=== PATIENT | female | born 1995 | race Hispanic/Latino ===

== ENCOUNTER 2016-06-27 14:28 | Inpatient (IN) | payer BC ==
[2016-06-27] MEDS ORDERED: Lactated Ringer's 1,000 ML IV STA (15:23)
--- NOTE | 2016-06-27 15:41 | ED PDOC ---
Syncope/Near Syncope/Dizzyness Time Seen by Provider: 06/27/16 15:13 Chief Complaint (Nursing): Dizziness/Lightheaded Chief Complaint (Provider): Lightheaded History Per: Patient History/Exam Limitations: no limitations Onset/Duration Of Symptoms: Days (x1 week), Worse Since (onset) Current Symptoms Are (Timing): Still Present Fall Associated With With Symptoms: No Severity: Moderate Additional Complaint(s): Trena Lopez is a 21 year old female, with no pertinent past medical history, who presents to the ED on 06/27/16 for the evaluation of moderate lightheadedness that she has experienced x1 week, reportedly worse since onset. Associated shortness of breath, present at rest and worsened with exertion, also reported in addition to mild, intermittent nausea and a posterior headache that begins to "bang/pound" with exertion. Denies fever, chills, vision changes , rhinorrhea, chest pain, cough, sore throat, vomiting, diarrhea, dysuria, weakness/numbness or syncopal episodes. Though she does report taking oral contraceptives she further denies any recent travel or dietary changes. No prior history of similar complaints or presence of URI symptoms prior symptom onset. LMP is as of 06/22/16, reportedly ending 2 days ago. Of note, patient was evaluated for this issue by a doctor in [facility] twice within the past week, most recently as of today. EKG and bloodwork were both performed , and though patient reports having been told the EKG was normal she has not yet been advised of the lab results. She had been initially given a prescription for Meclizine, but after it had provided no relief she had been referred to the ED for further evaluation. Has also medicated with Excedrin without relief. PMD: none Past Medical History Reviewed: Historical Data, Nursing Documentation, Vital Signs Vital Signs: Last Vital Signs Temp 98.1 F 06/27/16 14:47 Pulse 100 H 06/27/16 14:47 Resp 18 06/27/16 14:47 BP 94/47 L 06/27/16 14:47 Pulse Ox 100 06/27/16 14:47 - Medical History PMH: No Chronic Diseases Denies: Asthma, Diabetes, Migraine - Surgical History Surgical History: No Surg Hx - Family History Family History: States: Other (mother reportedly gets headaches, no hx of migraines) - Social History Current smoker - smoking cessation education provided: No Alcohol: Occasional (2x/week) Drugs: Denies - Home Medications Home Medications: Ambulatory Orders Medication Instructions Recorded No Known Home Med 06/27/16 - Allergies Allergies/Adverse Reactions: Allergies Allergy/AdvReac Type Severity Reaction Status Date / Time amoxicillin Allergy RASH Verified 06/27/16 14:46 Review of Systems ROS Statement: Except As Marked, All Systems Reviewed And Found Negative Constitutional: Negative for: Fever, Chills Eyes: Negative for: Vision Change ENT: Negative for: Nose Discharge, Throat Pain Cardiovascular: Positive for: Light Headedness. Negative for: Chest Pain, Other (no syncope) Respiratory: Positive for: Shortness of Breath, SOB with Exertion. Negative for : Cough Gastrointestinal: Positive for: Nausea. Negative for: Vomiting, Diarrhea Genitourinary Female: Negative for: Dysuria Neurological: Positive for: Headache (posterior, present at rest but begins "banging/pounding" with exertion). Negative for: Weakness, Numbness Physical Exam - Reviewed Nursing Documentation Reviewed: Yes Vital Signs Reviewed: Yes - Physical Exam Appears: Positive for: Non-toxic, No Acute Distress Head Exam: Positive for: ATRAUMATIC, NORMOCEPHALIC Skin: Positive for: Warm, Dry, Pallor Eye Exam: Positive for: Normal appearance, EOMI, PERRL. Negative for: Nystagmus ENT: Positive for: Normal ENT Inspection Neck: Positive for: Normal, Painless ROM, Supple Cardiovascular/Chest: Positive for: Tachycardia (mild, regular rhythm). Negative for: Murmur Respiratory: Positive for: Normal Breath Sounds. Negative for: Rales, Rhonchi, Wheezing, Respiratory Distress Gastrointestinal/Abdominal: Positive for: Normal Exam, Soft. Negative for: Tenderness Back: Positive for: Normal Inspection Extremity: Positive for: Normal ROM. Negative for: Calf Tenderness, Swelling Neurologic/Psych: Positive for: Alert, oral hygienist II-XII (intact), Oriented, Cerebellar Tests (intact [id number] b/l), Other ((+) mild [place] Hall[place] b/l) . Negative for: Motor/Sensory Deficits (5/5 x4 extremities) - Laboratory Results Result Diagrams: 06/27/16 15:52 06/27/16 15:52 Urine POC: Negative - ECG O2 Sat by Pulse Oximetry: 100 (RA) Pulse Ox Interpretation: Normal - CT Scan/US CT Head w/o contrast Other Rad Studies (CT/US): Read By Radiologist, Radiology Report Reviewed Other Rad Interpretation: see MDM - Critical Care Total Time (In Min): 30 Medical Decision Making Medical Decision Makin:13 Initial Impression: headache, lightheadedness Differential diagnoses include but are not limited to anemia, hyper/ hypothyroidism, pulmonary embolism. Initial Plan: * EKG * CT Head w/o contrast * Labs * Magnesium * Phosphorus * TSH * D-Dimer * Glucose/Blood/POC * Upreg * Udip * Lactated Ringer's 1000ml at 1000mls/hr * Reevaluation 16:46 CT Head report reviewed: FINDINGS: HEMORRHAGE: No intracranial hemorrhage. BRAIN: No mass effect or edema. No atrophy or chronic microvascular ischemic changes. VENTRICLES: Unremarkable. No hydrocephalus. CALVARIUM: Unremarkable. PARANASAL SINUSES: Unremarkable as visualized. No significant inflammatory changes. MASTOID AIR CELLS: Unremarkable as visualized. No inflammatory changes. OTHER FINDINGS: None. IMPRESSION: Normal CT of the Head. 17:00 Labs reviewed, patient is anemic with a hemoglobin level of 6.6. Upon provider reevaluation patient admits to having produced dark stools over the past 2 days. Upon rectal examination, stool is notably black with signs of bleeding. Will call Dr. Fong (GI document preparation specialist) for consult. Crossmatch, Blood Type/Screen, PTT and PT have been ordered as well as administration of protonix 40mg IVP. 17:[address] Fong, patient will be admitted under the service of Dr. Lay (Medicine document preparation specialist) with him to serve as consult. 17:[address] Lay, who is now aware of patient. Placed orders for Ferritin, Iron & TIBC, reticulocyte count, haptoglobin and occult blood stool. 17:[address] Carey (Cryptologic Technician Operator/Analyst), patient is stable for admission to Telemetry. Plan has been discussed with patient, who is in agreement. Scribe Attestation: Documented by Mildred King, acting as a scribe for Zofia Ramirez MD. Provider Scribe Attestation: All medical record entries made by the Scribe were at my direction and personally dictated by me. I have reviewed the chart and agree that the record accurately reflects my personal performance of the history, physical exam, medical decision making, and the department course for this patient. I have also personally directed, reviewed, and agree with the discharge instructions and disposition. Disposition - Clinical Impression Clinical Impression: Anemia, Gastrointestinal hemorrhage - Patient ED Disposition Is Patient to be Admitted: Yes - Disposition Disposition Time: 17:47 Condition: GUARDED - Pt Status Changed To: Hospital Disposition Of: Inpatient - Admit Certification Admit to Inpatient:: After my assessment, the patient will require hospitalization for at least two midnights. This is because of the severity of symptoms shown, intensity of services needed, and/or the medical risk in this patient being treated as an outpatient. - POA Present On Arrival: None
[2016-06-27 15:57] LABS: BASO % 0.8 % (0.0-2.0); EOS # 0.1 K/uL (0.0-0.7); EOS % 0.9 % (0.0-4.0); HEMATOCRIT 19.6 % (34.0-47.0); LYMPH # 2.2 K/uL (1.0-4.3); LYMPH % 36.9 % (20.0-40.0); MEAN CELL VOLUME 88.3 fl (81.0-99.0); MEAN CORPUSCULAR HEMOGLOBIN 29.7 pg (27.0-31.0); MEAN CORPUSCULAR HGB CONC 33.7 g/dL (33.0-37.0); MEAN PLATELET VOLUME 7.9 fl (7.2-11.7); MONO # 0.4 K/uL (0.0-0.8); MONO % 6.5 % (0.0-10.0); NEUT # 3.2 K/uL (1.8-7.0); NEUT % 54.9 % (50.0-75.0); RED CELL DISTRIBUTION WIDTH 12.9 % (11.5-14.5); WHITE BLOOD COUNT 5.9 K/uL (4.8-10.8)
[2016-06-27 16:22] LABS: ALB/GLOB RATIO 1.3 (1.0-2.1); ALKALINE PHOSPHATASE 54 U/L (38-126); ALT/SGPT 26 U/L (9-52); AST/SGOT 34 U/L (14-36); BILIRUBIN,TOTAL 0.5 mg/dl (0.2-1.3); BLOOD UREA NITROGEN 9 mg/dl (7-17); CALCIUM 9.1 mg/dL (8.4-10.2); CARBON DIOXIDE 25 mmol/L (22-30); CHLORIDE 106 mmol/L (98-107); GFR AFRICAN-AMERICAN > 60; GLUCOSE,RANDOM 110 mg/dL (65-105); PHOSPHOROUS 3.6 mg/dl (2.5-4.5); POTASSIUM 3.9 MMOL/L (3.6-5.0); SODIUM 142 mmol/l (132-148); TOTAL PROTEIN 6.9 G/DL (6.3-8.2)
--- NOTE | 2016-06-27 16:47 | CT ---
PROCEDURE: CT HEAD WITHOUT CONTRAST. HISTORY: dizzy headache COMPARISON: None available. TECHNIQUE: Axial computed tomography images were obtained through the head/brain without intravenous contrast. Radiation dose: Total exam DLP = 819 mGy-cm. This CT exam was performed using one or more of the following dose reduction techniques: Automated exposure control, adjustment of the mA and/or kV according to patient size, and/or use of iterative reconstruction technique. FINDINGS: HEMORRHAGE: No intracranial hemorrhage. BRAIN: No mass effect or edema. No atrophy or chronic microvascular ischemic changes. VENTRICLES: Unremarkable. No hydrocephalus. CALVARIUM: Unremarkable. PARANASAL SINUSES: Unremarkable as visualized. No significant inflammatory changes. MASTOID AIR CELLS: Unremarkable as visualized. No inflammatory changes. OTHER FINDINGS: None. IMPRESSION: Normal CT of the Head.
[2016-06-27 16:52] LABS: THYROID STIMULATING HORMONE 0.93 mIU/ML (0.46-4.68)
[2016-06-27 18:17] LABS: PARTIAL THROMBOPLASTIN TIME 20.9 SECONDS (23.3-32.5)
[2016-06-27 18:43] LABS: IRON 19 ug/dL (37-170)
[2016-06-27 19:17] VITALS: BMI 21.1
[2016-06-28 12:04] LABS: BASO # 0.1 K/uL (0.0-0.2); BASO % 0.9 % (0.0-2.0); EOS # 0.1 K/uL (0.0-0.7); EOS % 2.5 % (0.0-4.0); HEMATOCRIT 28.3 % (34.0-47.0); LYMPH # 2.1 K/uL (1.0-4.3); LYMPH % 38.6 % (20.0-40.0); MEAN CELL VOLUME 87.4 fl (81.0-99.0); MEAN CORPUSCULAR HEMOGLOBIN 29.2 pg (27.0-31.0); MEAN CORPUSCULAR HGB CONC 33.4 g/dL (33.0-37.0); MEAN PLATELET VOLUME 7.8 fl (7.2-11.7); MONO # 0.5 K/uL (0.0-0.8); MONO % 9.8 % (0.0-10.0); NEUT # 2.7 K/uL (1.8-7.0); NEUT % 48.2 % (50.0-75.0); RED CELL DISTRIBUTION WIDTH 13.2 % (11.5-14.5); WHITE BLOOD COUNT 5.6 K/uL (4.8-10.8)
[2016-06-28 12:24] LABS: ALB/GLOB RATIO 1.2 (1.0-2.1); ALKALINE PHOSPHATASE 56 U/L (38-126); ALT/SGPT 37 U/L (9-52); AST/SGOT 37 U/L (14-36); BILIRUBIN,TOTAL 1.9 mg/dl (0.2-1.3); BLOOD UREA NITROGEN 8 mg/dl (7-17); CALCIUM 9.2 mg/dL (8.4-10.2); CARBON DIOXIDE 25 mmol/L (22-30); CHLORIDE 106 mmol/L (98-107); GFR AFRICAN-AMERICAN > 60; GLUCOSE,RANDOM 88 mg/dL (65-105); POTASSIUM 4.3 MMOL/L (3.6-5.0); SODIUM 142 mmol/l (132-148); TOTAL PROTEIN 6.7 G/DL (6.3-8.2)
--- NOTE | 2016-06-28 15:08 | CARD ---
APPROVED REPORT EKG Measurement Heart [id number] MA [id number] <Conclusion> Normal sinus rhythm with sinus arrhythmia Normal ECG
--- NOTE | 2016-06-28 15:53 | CP.PCM.CON ---
History of Present Illness - History of Present Illness History of Present Illness: 21 year old female with no past medical history admitted with symptomatic anemia. The patient has been experiencing progressive fatigue, exertional shortness of breath and headaches for about 1 weeks time. She denies heavy periods but has noticed blood in the toilet bowl in the last several days and black stool intermittently in the last few weeks. She is currently s/p PRBC transfusion and reports to feeling better. She continues to have a headache. Past medical history: None Past surgical history: None Family history: Grandfather had colon cancer Social history: Denies tobacco and illicit drug use, drinks alcohol socially. Allergies: Amoxicillin Review of systems: All remaining review of systems including HEENT, cardiovascular, respiratory, gastrointestinal, genitourinary, musculoskeletal, dermatologic, neurologic, and psychiatric are negative unless mentioned in the HPI. Past Patient History - Past Medical History & Family History Past Medical History?: Yes - Past Social History Smoking Status: Never Smoked - CARDIAC Hx Cardiac Disorders: No - PULMONARY Hx Respiratory Disorders: No Hx Asthma: No - NEUROLOGICAL Hx Neurological Disorder: Yes Hx Migraine: Yes Other/Comment: Hx of headaches since high school - pt took Advil/OTC pain meds for relief. Present stay in hospital -first time headaches were very painful and unrelived by OTC pain meds. - HEENT Other/Comment: Pt wore eye glasses/contacts since 2nd grade - 5 years old. - RENAL Hx Chronic Kidney Disease: No - ENDOCRINE/METABOLIC Hx Endocrine Disorders: No - HEMATOLOGICAL/ONCOLOGICAL Hx Blood Disorders: No Other/Comment: Present visit is pt's first instance of need for blood transfusion. - INTEGUMENTARY Hx Dermatological Problems: No - MUSCULOSKELETAL/RHEUMATOLOGICAL Hx Musculoskeletal Disorders: No Hx Falls: No - GASTROINTESTINAL Hx Bowel Surgery: No - GENITOURINARY/GYNECOLOGICAL Hx Genitourinary Disorders: No - PSYCHIATRIC Hx Psychophysiologic Disorder: No Hx Substance Use: No - SURGICAL HISTORY Hx Surgeries: No - ANESTHESIA Hx Anesthesia: No Hx Anesthesia Reactions: No Hx Malignant Hyperthermia: No Has any member of the family had a problem w/ anesthesia?: No Meds Allergies/Adverse Reactions: Allergies Allergy/AdvReac Type Severity Reaction Status Date / Time amoxicillin Allergy RASH Verified 06/27/16 14:46 - Medications Medications: Current Medications Iron Sucrose 200 mg/ Sodium (Chloride) 110 mls @ 110 mls/hr IVPB DAILY CHANEL Stop: 07/03/16 16:01 Pantoprazole Sodium (Protonix Inj) 40 mg IVP Q12H CHANEL Last Admin: 06/28/16 13:24 Dose: 40 mg Physical Exam - Head Exam Head Exam: ATRAUMATIC - Eye Exam Eye Exam: Normal appearance - ENT Exam ENT Exam: Mucous Membranes Dry - Respiratory Exam Respiratory Exam: NORMAL BREATHING PATTERN - Cardiovascular Exam Cardiovascular Exam: +S1, +S2 - GI/Abdominal Exam GI & Abdominal Exam: Normal Bowel Sounds - Extremities Exam Extremities exam: Positive for: normal inspection - Neurological Exam Neurological exam: Oriented x3 - Psychiatric Exam Psychiatric exam: Normal Affect, Normal Mood - Skin Skin Exam: Warm Results - Vital Signs Recent Vital Signs: Last Vital Signs Temp 97.3 F L 06/28/16 12:17 Pulse 78 06/28/16 12:17 Resp 18 06/28/16 12:17 BP 102/68 06/28/16 12:17 Pulse Ox 100 06/28/16 12:17 - Labs Result Diagrams: 06/28/16 11:40 06/28/16 11:40 Labs: Laboratory Results - last 24 hr 06/27/16 06/27/16 06/27/16 17:52 17:58 18:20 WBC RBC Hgb Hct MCV MCH MCHC RDW Plt Count MPV Neut % (Auto) Lymph % (Auto) [place] % (Auto) Eos % (Auto) Baso % (Auto) Neut # Lymph # [place] # Eos # Baso # Retic Count 5.3 H Sodium Potassium Chloride Carbon Dioxide Anion Gap BUN Creatinine Est GFR ( Amer) Est GFR (Non-Af Amer) Random Glucose Calcium Iron 19 L TIBC 451 H % Saturation 4 L Ferritin 4.1 Total Bilirubin AST ALT Alkaline Phosphatase Total Protein Albumin Globulin Albumin/Globulin Ratio Vitamin B12 Stool Occult Blood Positive H Blood Type O NEGATIVE Blood Type Confirm O NEGATIVE Antibody Screen Negative Crossmatch See Detail BBK History Checked No verified bt 06/28/16 11:40 WBC 5.6 RBC 3.24 L Hgb 9.4 L D Hct 28.3 L MCV 87.4 MCH 29.2 MCHC 33.4 RDW 13.2 Plt Count 317 MPV 7.8 Neut % (Auto) 48.2 L Lymph % (Auto) 38.6 [place] % (Auto) 9.8 Eos % (Auto) 2.5 Baso % (Auto) 0.9 Neut # 2.7 Lymph # 2.1 [place] # 0.5 Eos # 0.1 Baso # 0.1 Retic Count 3.2 H D Sodium 142 Potassium 4.3 Chloride 106 Carbon Dioxide 25 Anion Gap 15 BUN 8 Creatinine 0.6 L Est GFR ( Amer) > 60 Est GFR (Non-Af Amer) > 60 Random Glucose 88 Calcium 9.2 Iron TIBC % Saturation Ferritin Total Bilirubin 1.9 H AST 37 H ALT 37 Alkaline Phosphatase 56 Total Protein 6.7 Albumin 3.6 Globulin 3.1 Albumin/Globulin Ratio 1.2 Vitamin B12 280 Stool Occult Blood Blood Type Blood Type Confirm Antibody Screen Crossmatch BBK History Checked Assessment & Plan (1) Anemia Assessment and Plan: work up consistent with iron deficiency anemia likely from chronic blood loss FOBT positive; GI evaluation will start the patient on IV iron borderline b12 stores; will give intramuscular B12 will check folate level Thank you for this interesting consult. Status: Acute
--- NOTE | 2016-06-28 23:56 | CP.PCM.CON ---
History of Present Illness - History of Present Illness History of Present Illness: 21 yo female admitted with svere anemia. Patient came to ER for extreme fatigue. She noted black stool earlier that day. She uses excedrin for headaches. No active bleeding since admission. Review of Systems - Constitutional Constitutional: absent: Chills - EENT Eyes: absent: Blurred Vision Ears: absent: Decreased Hearing Nose/Mouth/Throat: absent: Epistaxis - Cardiovascular Cardiovascular: absent: Chest Pain - Respiratory Respiratory: absent: Dyspnea - Gastrointestinal Gastrointestinal: Melena Past Patient History - Past Medical History & Family History Past Medical History?: Yes - Past Social History Smoking Status: Never Smoked - CARDIAC Hx Cardiac Disorders: No - PULMONARY Hx Respiratory Disorders: No Hx Asthma: No - NEUROLOGICAL Hx Neurological Disorder: Yes Hx Migraine: Yes Other/Comment: Hx of headaches since high school - pt took Advil/OTC pain meds for relief. Present stay in hospital -first time headaches were very painful and unrelived by OTC pain meds. - HEENT Other/Comment: Pt wore eye glasses/contacts since 2nd grade - 5 years old. - RENAL Hx Chronic Kidney Disease: No - ENDOCRINE/METABOLIC Hx Endocrine Disorders: No - HEMATOLOGICAL/ONCOLOGICAL Hx Blood Disorders: No Other/Comment: Present visit is pt's first instance of need for blood transfusion. - INTEGUMENTARY Hx Dermatological Problems: No - MUSCULOSKELETAL/RHEUMATOLOGICAL Hx Musculoskeletal Disorders: No Hx Falls: No - GASTROINTESTINAL Hx Bowel Surgery: No - GENITOURINARY/GYNECOLOGICAL Hx Genitourinary Disorders: No - PSYCHIATRIC Hx Psychophysiologic Disorder: No Hx Substance Use: No - SURGICAL HISTORY Hx Surgeries: No - ANESTHESIA Hx Anesthesia: No Hx Anesthesia Reactions: No Hx Malignant Hyperthermia: No Has any member of the family had a problem w/ anesthesia?: No Meds Allergies/Adverse Reactions: Allergies Allergy/AdvReac Type Severity Reaction Status Date / Time amoxicillin Allergy RASH Verified 06/27/16 14:46 - Medications Medications: Current Medications Cyanocobalamin (Vitamin B12 1000 Mcg/Ml Inj) 1,000 mcg IM DAILY CHANEL Stop: 07/03/16 18:01 Last Admin: 06/28/16 17:41 Dose: 1,000 mcg Iron Sucrose 200 mg/ Sodium (Chloride) 110 mls @ 110 mls/hr IVPB DAILY CHANEL Stop: 07/03/16 16:01 Last Admin: 06/28/16 17:00 Dose: 110 mls/hr Pantoprazole Sodium (Protonix Inj) 40 mg IVP Q12H CHANEL Last Admin: 06/28/16 13:24 Dose: 40 mg Physical Exam - Head Exam Head Exam: NORMAL INSPECTION - Eye Exam Pupil Exam: PERRL - ENT Exam ENT Exam: Mucous Membranes Moist - Neck Exam Neck exam: Positive for: Normal Inspection - Respiratory Exam Respiratory Exam: Clear to Auscultation Bilateral - Cardiovascular Exam Cardiovascular Exam: REGULAR RHYTHM - GI/Abdominal Exam GI & Abdominal Exam: Normal Bowel Sounds, Soft. absent: Tenderness Results - Vital Signs Recent Vital Signs: Last Vital Signs Temp 98.6 F 06/28/16 20:32 Pulse 113 H 06/28/16 20:33 Resp 18 06/28/16 20:32 BP 96/60 L 06/28/16 20:32 Pulse Ox 98 06/28/16 20:32 - Labs Result Diagrams: 06/28/16 11:40 06/28/16 11:40 Labs: Laboratory Results - last 24 hr 06/27/16 06/28/16 17:52 11:40 WBC 5.6 RBC 3.24 L Hgb 9.4 L D Hct 28.3 L MCV 87.4 MCH 29.2 MCHC 33.4 RDW 13.2 Plt Count 317 MPV 7.8 Neut % (Auto) 48.2 L Lymph % (Auto) 38.6 [place] % (Auto) 9.8 Eos % (Auto) 2.5 Baso % (Auto) 0.9 Neut # 2.7 Lymph # 2.1 [place] # 0.5 Eos # 0.1 Baso # 0.1 Retic Count 3.2 H D Sodium 142 Potassium 4.3 Chloride 106 Carbon Dioxide 25 Anion Gap 15 BUN 8 Creatinine 0.6 L Est GFR ( Amer) > 60 Est GFR (Non-Af Amer) > 60 Random Glucose 88 Calcium 9.2 Total Bilirubin 1.9 H AST 37 H ALT 37 Alkaline Phosphatase 56 Total Protein 6.7 Albumin 3.6 Globulin 3.1 Albumin/Globulin Ratio 1.2 Vitamin B12 280 Blood Type O NEGATIVE Antibody Screen Negative Crossmatch See Detail BBK History Checked No verified bt Assessment & Plan (1) GI bleed Assessment and Plan: Likely upper GI bleed. R/o ulcer gastritis. Continue PPI. Upper endoscopy Thursday. Status: Acute
[2016-06-29 12:01] LABS: HEMATOCRIT 29.5 % (34.0-47.0); MEAN CORPUSCULAR HEMOGLOBIN 29.1 pg (27.0-31.0); MEAN CORPUSCULAR HGB CONC 33.1 g/dL (33.0-37.0); RED CELL DISTRIBUTION WIDTH 13.4 % (11.5-14.5); WHITE BLOOD COUNT 5.1 K/uL (4.8-10.8)
--- NOTE | 2016-06-29 22:09 | CP.PCM.PN ---
Subjective - Date & Time of Evaluation Date of Evaluation: 06/29/16 Time of Evaluation: 12:00 - Subjective Subjective: Still with headaches. No bleeding noted. Objective - Vital Signs/Intake and Output Vital Signs (last 24 hours): Temp Pulse Resp BP Pulse Ox 97.2 F L 84 16 100/62 98 06/29/16 15:45 06/29/16 15:45 06/29/16 15:45 06/29/16 15:45 06/29/16 15:45 - Medications Medications: Current Medications Cyanocobalamin (Vitamin B12 1000 Mcg/Ml Inj) 1,000 mcg IM DAILY CHANEL Stop: 07/03/16 18:01 Last Admin: 06/29/16 08:16 Dose: 1,000 mcg Iron Sucrose 200 mg/ Sodium (Chloride) 110 mls @ 110 mls/hr IVPB DAILY CHANEL Stop: 07/03/16 16:01 Last Admin: 06/29/16 08:51 Dose: 110 mls/hr Pantoprazole Sodium (Protonix Inj) 40 mg IVP Q12H CHANEL Last Admin: 06/29/16 13:15 Dose: 40 mg - Labs Labs: 06/29/16 11:40 06/28/16 11:40 PT 10.0 SECONDS (9.6-11.2) 06/27/16 15:52 INR 0.96 (0.92-1.08) 06/27/16 15:52 APTT 20.9 SECONDS (23.3-32.5) L 06/27/16 15:52 - Head Exam Head Exam: ATRAUMATIC - Eye Exam Eye Exam: Normal appearance - ENT Exam ENT Exam: Mucous Membranes Moist - Neck Exam Neck Exam: Normal Inspection - Respiratory Exam Respiratory Exam: NORMAL BREATHING PATTERN - Cardiovascular Exam Cardiovascular Exam: REGULAR RHYTHM, +S1, +S2 - GI/Abdominal Exam GI & Abdominal Exam: Soft, Normal Bowel Sounds. absent: Tenderness Assessment and Plan (1) GI bleed Assessment & Plan: No further bleeding noted and Hgb is stable. Continue PPI. Upper endoscopy Thursday. Status: Acute
--- NOTE | 2016-06-30 08:09 | HP ---
HISTORY OF PRESENT ILLNESS: This is 21-year-old female with no significant past medical hi story, who presented with symptoms of lightheadedness and shortness of breath that has been progressi ve over 1 week. The patient has been complaining of what looks like migraine headaches for which she has been treated by Excedrin by her primary care physician in [facility]. The patient was evalua jenifer in the Emergency Room and she was found to have a hemoglobin 6.6 and hematocrit 19.6 with stool o ccult H positive. The patient was started on Protonix. A GI consultation was done and the patient w as admitted for blood transfusion also was started. Other review of systems is negative, but the pat anthony stated that she used to take Meclizine for her migraine headache until 2 weeks ago she was presc ribed Excedrin. Other review of systems is negative. ALLERGIES: No known allergy. MEDICATIONS: Excedrin. PAST MEDICAL HISTORY: Not significant. SOCIAL HISTORY: Denies ETOH, Denies smoking or substance abuse. FAMILY HISTORY: Noncontributory. PHYSICAL EXAMINATION: GENERAL: This patient is comfortable in bed at the time of this examination. VITAL SIGNS: Blood pressure 102/68, temperature 97.3, respiratory rate 18, and pulse 78. HEENT: Pupils equal, reactive to light. Normal-appearing mucosa of the conjunctivae, oropharyngeal and nasal membrane mucosa. NECK: Supple, no JVD, no carotid bruit, no lymph node, no thyromegaly. CHEST AND LUNGS: Bilateral symmetrical expansion, good air exchange, no rales, no rhonchi. CARDIOVASCULAR: PMI not localized. S1, S2. No additional sounds. ABDOMEN: Normoactive bowel sounds, no tenderness, no organomegaly, no masses. EXTREMITIES: No cyanosis, no clubbing. NERVOUS SYSTEM: Alert, awake, oriented x 3. No neurological deficits could be appreciated. ASSESSMENT: Severe symptomatic anemia of what seems to be acute blood loss, likely peptic ulcer dise ase versus gastritis. PLAN: Will continue Protonix, advance diet as tolerated and follow GI recommendations and monitor he moglobin and hematocrit. Lou Lay MD cc: [id number] TT: 06/28/2016 18:56:54 dn 06/30/2016 07:08:02
[2016-06-30] MEDS ORDERED: Lactated Ringer's 500 ML IV ONE (12:44)
[2016-06-30] MEDS ORDERED: Propofol 10 mg/ml Inj (20 ML) ONE (13:01)
[2016-06-30 15:45] VITALS: BP 96/58; PULSE 73; RESP 20; TEMP 98.5; O2SAT 98
--- NOTE | 2016-06-30 22:18 | DS ---
REASON FOR ADMISSION: This is a 21-year-old female with no significant past medical histor y who presented with severe symptomatic anemia. COURSE OF HOSPITALIZATION: The patient was admitted to telemetry floor and she was transfused 2 unit s of packed RBCs and hemoglobin came up from 6.6 to 9.8. The patient underwent endoscopy that did no t show active bleeding and she was discharged in a stable condition to continue Protonix, as well as iron supplement. The patient was requested to follow up as an outpatient next week. FINAL DIAGNOSIS: Upper gastrointestinal bleeding, symptomatic anemia of acute blood loss. [facility] Ruthie Lay MD cc: [id number] TT: 06/30/2016 22:18:06 mn
== END 2016-06-30 16:30 | disposition home or self-care (01) | DRG 378 ==
LOC: H.ER 14:28 → H.ERHOLD 17:47 → H.TEL 21:25
PROVIDERS: ADMIT Internal Medicine; ATTEND Internal Medicine
PROC: 30233N1 Transfusion of Nonautologous Red Blood Cells into Peripheral Vein, Percutaneous Approach (ICD-10-PCS; 2016-06-27)
PROC: 0DB68ZX Excision of Stomach, Via Natural or Artificial Opening Endoscopic, Diagnostic (ICD-10-PCS; 2016-06-30)
PROC: 0DB98ZX Excision of Duodenum, Via Natural or Artificial Opening Endoscopic, Diagnostic (ICD-10-PCS; principal; 2016-06-30 14:00)
DX: K92.2 Gastrointestinal hemorrhage, unspecified (principal); D62 Acute posthemorrhagic anemia; K92.1 Melena; K31.9 Disease of stomach and duodenum, unspecified; Z88.0 Allergy status to penicillin